=== PATIENT | female | born 1995 | race Caucasian/White ===

== ENCOUNTER 2019-10-06 12:56 | Emergency (ER) | payer BC ==
--- OUTSIDE RECORDS SUMMARY | 2019-10-06 13:18 | XMS REPORT | Continuity of Care Document ---
:1995 External Reference #:[id number] Author Name Jesús Galvan MD Address [address] [place] [address] Problems Description No Information Available Social History Type Date Description Comments Sex Unknown Tobacco Use Start: Unknown Never Smoked Cigarettes ETOH Use Occasionally consumes alcohol Tobacco Use Start: Unknown Patient has never smoked Recreational Drug Use Denies Drug Use Enjoy Exercising Enjoys exercising Allergies, Adverse Reactions, Alerts Description No Known Drug Allergies Medications Active Medications SIG Qnty Indications Ordering Provider Date Ferrous Gluconate 1 by mouth every 30tabs Zhane Vogel, 07/12/2017 day [facility] 324(38Fe) mg Tablets Enskyce 1 by mouth every 84tabs Sofi Song, 06/15/2017 0.15-30mg-mcg day [facility] Tablets Imitrex take one tablet 14tabs R51 Zhane Vogel, 06/15/2017 25mg Tablets by mouth at the [facility] onset of headache, may repeat dose in 2 hours if needed Medications Administered in Office Medication SIG Qnty Indications Ordering Provider Date Vitamin B-12 Injection-To [facility] 07/19/2019 1000mcg Injection TB,Intradermal (PPD, Mantoux) Unknown 05/28/2013 Injection Immunizations CPT Code Status Date Vaccine Lot # [id number] Given 07/12/2017 Menb - Serogroup B Meningococcal Vaccine(Trumenba) [id number] 27028 Given 12/07/2015 Menb - Serogroup B Meningococcal Vaccine(Trumenba) [id number] 85671 Given 10/08/2013 Menactra (meningococcal conjugate vaccine) 15358 Given 01/31/2012 HPV Vaccine, Gardasil 16057 Given 09/27/2011 HPV Vaccine, Gardasil 86806 Given 09/27/2011 Hepatitis A (Ped) 2 Dose Schedule 29175 Given 09/24/2010 HPV Vaccine, Gardasil 10534 Given 09/24/2010 Hepatitis A (Ped) 2 Dose Schedule 53823 Given 09/17/2009 Menactra (meningococcal conjugate vaccine) 49388 Given 09/16/2008 Varicella (Chicken Pox) Vaccine 99545 Given 09/16/2008 Tdap (Adacel) 97710 Given 10/15/2001 Inactivated Polio Vaccine, Injectable (Ipol) 51154 Given 10/15/2001 MMR (Measles,Mumps,Rubella) 67196 Given 10/15/2001 DTaP (Daptacel) 89669 Given 11/24/1998 Hib (Hemophilus Influenza B) (Acthib) 23976 Given 11/24/1998 DTaP (Daptacel) 33126 Given 08/04/1998 MMR (Measles,Mumps,Rubella) 84050 Given 08/04/1998 Inactivated Polio Vaccine, Injectable (Ipol) 25033 Given 08/04/1998 Varicella (Chicken Pox) Vaccine 10642 Given 02/09/1998 Comvax - Hep B Pediatric/Hib 36386 Given 02/09/1998 DTaP (Daptacel) 34653 Given 1997 Inactivated Polio Vaccine, Injectable (Ipol) 07428 Given 1997 DTaP (Daptacel) 97501 Given 1997 Hib (Hemophilus Influenza B) (Acthib) 81999 Given 1997 Comvax - Hep B Pediatric/Hib 65843 Given 1997 Inactivated Polio Vaccine, Injectable (Ipol) 79587 Given 1997 DTaP (Daptacel) 18365 Given 1997 Hep B Vaccine, Ped/Adol Dose 3 Dose (Engerix or Recombivax) 28129 Refused 07/15/2019 Influenza Virus Vaccine, Quadrivalent, 3 Yr > Quad , Preserv Free 86256 Refused 07/19/2018 Influenza Virus Vaccine, Quadrivalent, 3 Yr > Quad , Preserv Free 76100 Refused 07/12/2017 Influenza Virus Vaccine, Quadrivalent, 3 Yr > Quad , Preserv Free 78908 Refused 11/24/2015 Influenza Virus Vaccine, Quadrivalent, 3 Yr > Quad , Preserv Free Vital Signs Date Vital Result Comment 09/23/2019 8:59am Weight 122.00 lb Weight 55.339 kg BP Systolic 110 mmHg BP Diastolic 68 mmHg Heart Rate 80 /min Body Temperature 98.2 F Respiratory Rate 14 /min 07/15/2019 2:11pm Weight 119.00 lb Weight 53.978 kg BP Systolic 124 mmHg BP Diastolic 72 mmHg Body Temperature 98.0 F Respiratory Rate 16 /min Results Test Acquired Facility Test Result H/L Range Note Date Laboratory 07/19/2019 [facility] Intrinsic Factor Negative Negative 1 test finding [phone] Blocking AB Celiac Panel 07/19/2019 [facility] Tissue <1.2 U/mL 2 [phone] Transglutaminase IgA Ab Immunoglobulin A 317 mg/dL 61 - 356 Celiac Interpretation See Comment 3 CBC Auto 07/15/2019 [facility] White Blood 7.7 10^3/ uL Normal 3.5-10.8 Diff [phone] Count Red Blood Count 4.48 10^6/uL Normal 3.70-4.87 Hemoglobin 14.1 g/dL Normal 12.0-16.0 Hematocrit 40 % Normal 35-47 Mean Corpuscular Volume 90 fL Normal 80-97 Mean Corpuscular Hemoglobin 32 pg High 27-31 Mean Corpuscular HGB Conc 35 g/dL Normal 31-36 Red Cell Distribution Width 14 % Normal 10-15 Platelet Count 281 10^3/uL Normal 150-450 Mean Platelet Volume 8.8 fL Normal 7.4-10.4 Abs Neutrophils 4.6 10^3/uL Normal 1.5-7.7 Abs Lymphocytes 2.3 10^3/uL Normal 1.0-4.8 Abs Monocytes 0.6 10^3/uL Normal 0-0.8 Abs Eosinophils 0.2 10^3/uL Normal 0-0.6 Abs Basophils 0.0 10^3/uL Normal 0-0.2 Abs Nucleated RBC 0.0 10^3/uL Granulocyte % 59.1 % Lymphocyte % 30.4 % Monocyte % 7.7 % Eosinophil % 2.2 % Basophil % 0.6 % Nucleated Red Blood Cells % 0.1 Comp Metabolic 07/15/2019 [facility] Sodium 138 mmol/ L Normal 135-145 Panel [phone] Potassium 3.9 mmol/L Normal 3.5-5.0 Chloride 107 mmol/L Normal 101-111 Co2 Carbon Dioxide 24 mmol/L Normal 22-32 Anion Gap 7 mmol/L Normal 2-11 Glucose 104 mg/dL High 70-100 Blood Urea Nitrogen 11 mg/dL Normal 6-24 Creatinine 0.75 mg/dL Normal 0.51-0.95 BUN/Creatinine Ratio 14.7 Normal 8-20 Calcium 9.4 mg/dL Normal 8.6-10.3 Total Protein 7.1 g/dL Normal 6.4-8.9 Albumin 4.2 g/dL Normal 3.2-5.2 Globulin 2.9 g/dL Normal 2-4 Albumin/Globulin Ratio 1.4 Normal 1-3 Total Bilirubin 0.40 mg/dL Normal 0.2-1.0 Alkaline Phosphatase 44 U/L Normal 34-104 Alt 9 U/L Normal 7-52 Ast 14 U/L Normal 13-39 Egfr Non- 97.5 >60 Egfr 118.0 >60 4 Laboratory test 07/15/2019 [facility] C Reactive 5.99 mg/L Normal <8.01 5 finding [phone] Protein TSH (Thyroid Stim Horm) 0.71 mcIU/mL Normal 0.34-5.60 6 Vitamin B12 167 pg/mL Low 180-914 7 Intrinsic Factor Blocking AB Negative Negative 8 Celiac Panel 07/15/2019 [facility] Tissue Transglutaminase <1.2 U/mL 9 [phone] IgA Ab Immunoglobulin A 95 mg/dL 61 - 356 Celiac Interpretation See Comment 10 1 Positive in 50% of persons with pernicious anemia. Test Performed by: [facility] [address] Assistant To The Vice President: Jarocoh Wood M.D. Ph.D.; IA# [id number] 2 REFERENCE VALUE <4.0 (Negative) Test Performed by: [facility] [place] [address] Assistant To The Vice President: Jarocho Wood M.D. Ph.D.; CLIA# [id number] 3 Negative serology. Celiac disease unlikely. However, approximately 10% of patients with celiac disease are seronegative. Also, patients who are already adhering to a gluten-free diet may be seronegative. If celiac disease is highly clinically suspected, consider HLA-DQ typing. Test Performed by: [facility] [place] [address] Assistant To The Vice President: Jarocho Wood M.D. Ph.D.; CLIA# [id number] 4 Because ethnic data is not always readily available, this report includes an eGFR for both -Americans and non- Americans. The National Kidney Disease Education Program (NKDEP) does not endorse the use of the MDRD equation for patients that are not between the ages of 18 and 70, are , have extremes of body size, muscle mass, or nutritional status, or are non- or non-. According to the National Kidney Foundation, irrespective of diagnosis, the stage of the disease is based on the level of kidney function: Stage Description GFR(mL/min/1.73 m(2)) 1 Kidney damage with normal or decreased GFR 90 2 Kidney damage with mild decrease in GFR 60-89 3 Moderate decrease in GFR 30-59 4 Severe decrease in GFR 15-29 5 Kidney failure <15 (or dialysis) 5 [id number] 6 [id number] 7 Normal Range 180 to 914 Indeterminate Range 145 to 180 Deficient Range <145 8 Positive in 50% of persons with pernicious anemia. Test Performed by: [facility] [place] [address] Assistant To The Vice President: Jarocho Wood M.D. Ph.D.; CLIA# [id number] 9 REFERENCE VALUE <4.0 (Negative) Test Performed by: [place] [address] Assistant To The Vice President: Jarocho Wood M.D. Ph.D.; CLIA# [id number] 10 Negative serology. Celiac disease unlikely. However, approximately 10% of patients with celiac disease are seronegative. Also, patients who are already adhering to a gluten-free diet may be seronegative. If celiac disease is highly clinically suspected, consider HLA-DQ typing. Test Performed by: [facility] [address] [place] [address] Assistant To The Vice President: Jarocho Wood M.D. Ph.D.; CLIA# [id number] Procedures Date Code Description Status 07/19/2019 74462 Therapeutic,Prophylactic,Or Diagnostic Inj,SC/Im Specify Completed Drug Medical Devices Description No Information Available Encounters Type Date Location Provider Dx Diagnosis Office Visit 07/15/2019 Main Office Jesús Galvan, R11.2 Nausea with vomiting, 2:15p unspecified Assessments Date Code Description Provider 09/23/2019 B27.90 Infectious mononucleosis, unspecified Jesús Galvan MD without complication 07/19/2019 E53.8 Deficiency of other specified B group Jesús Galvna MD vitamins 07/19/2019 E53.8 Deficiency of other specified B group [facility] vitamins 07/15/2019 R11.2 Nausea with vomiting, unspecified Jesús Galvan MD Plan of Treatment 09/23/2019 - Jesús Galvan MDB27.90 Infectious mononucleosis, unspecified without complicationComments:Brief fever and severe sore throat, with some tender LN left over. Severe fatigue and worsening of her mild autonomic symptoms (orthostasis, migraine, headaches, tmj).The symptoms are already resolving and the severe phase was quite brief. I think this represents a reinfection or reactivation of mono(which she states she has had twice before). Recommended symptomatic treatment to include excellent hydration and lots of rest. Functional Status Description No Information Available Mental Status Description No Information Available Referrals Description No Information Available
--- NOTE | 2019-10-06 14:02 | ED ---
Back Pain - HPI Summary HPI Summary: This patient is a 24 year old F presenting to ED with a chief complaint of lower left back pain radiating down the left leg since one week ago. Patient describes the pain as a constant dull ache but turns into shooting pain down the left leg if she moves a certain way. Patient denies fever, urinary incontinence/symptoms or fecal impaction/bowel symptoms. Patient denies lifting weights. Patients last menstrual cycle was two weeks ago, and she denies a risk of being . Patient is recovering from mono and has been lying in bed for the past two weeks. The patient rates the pain 5/10 in severity. Symptoms aggravated by nothing. Symptoms alleviated by nothing. - History of Current Complaint Chief Complaint: EDBackInjuryPain Stated Complaint: LOWER BACK PAIN PER PT Time Seen by Provider: 10/06/19 13:56 Hx Obtained From: Patient Onset/Duration: Gradual Onset, Lasting Weeks - 1 week, Still Present Onset/Duration: Started Weeks Ago - 1 week, Still Present Timing: Constant, Lasting Weeks - 1 week Back Pain Location: Is Discrete @ - Lower left back, Radiates To - Left leg Severity Initially: Moderate Severity Currently: Moderate Pain Intensity: 5 Pain Scale Used: 0-10 Numeric Character: Dull Aggravating Symptom(s): Nothing Alleviating Symptom(s): Nothing Associated Signs And Symptoms: Negative: Fever, Bladder Incontinence, Bowel Incontinence - Allergies/Home Medications Allergies/Adverse Reactions: Allergies Allergy/AdvReac Type Severity Reaction Status Date / Time No Known Allergies Allergy Verified 10/06/19 13:03 Home Medications: Home Medications Ibuprofen TAB* [Motrin TAB* 600 MG] 600 mg PO Q8H PRN #30 tab 10/06/19 [Rx] Methocarbamol TAB* [Robaxin 500 MG TAB*] 500 mg PO TID PRN #12 tab 10/06/19 [Rx] methylPREDNISolone [Medrol Dosepak 4 MG*] 0 mg PO .SEE AIYANA INSTRUCTION #1 aiyana [Rx] PMH/Surg Hx/FS Hx/Imm Hx Endocrine/Hematology History: Denies: Hx Diabetes Cardiovascular History: Denies: Hx Hypercholesterolemia, Hx Hypertension Respiratory History: Denies: Hx Asthma - Surgical History Surgery Procedure, Year, and Place: Denies Infectious Disease History: No Infectious Disease History: Denies: Traveled Outside the [place] in Last 30 Days - Family History Known Family History: Positive: Cardiac Disease - [place], Hypertension, Diabetes - Social History Alcohol Use: None Hx Substance Use: No Substance Use Type: Reports: None Hx Tobacco Use: No Smoking Status (MU): Never Smoked Tobacco Review of Systems Negative: Fever Negative: incontinence Musculoskeletal: Other - Lower left back pain radiating down the left leg All Other Systems Reviewed And Are Negative: Yes Physical Exam - Summary Physical Exam Summary: VITAL SIGNS: Reviewed. GENERAL: Patient is a well-developed and nourished female who is lying comfortable in the stretcher. Patient is not in any acute respiratory distress. HEAD AND FACE: No signs of trauma. No ecchymosis, hematomas or skull depressions. No sinus tenderness. EYES: PERRLA, EOMI x 2, No injected conjunctiva, no nystagmus. EARS: Hearing grossly intact. Ear canals and tympanic membranes are within normal limits. MOUTH: Oropharynx within normal limits. NECK: Supple, trachea is midline, no adenopathy, no JVD, no carotid bruit, no c- spine tenderness, neck with full ROM. CHEST: Symmetric, no tenderness at palpation. LUNGS: Clear to auscultation bilaterally. No wheezing or crackles. CVS: Regular rate and rhythm, S1 and S2 present, no murmurs or gallops appreciated. ABDOMEN: Soft, non-tender. No signs of distention. No rebound, no guarding, and no masses palpated. Bowel sounds are normal. EXTREMITIES: Tenderness in the left gluteus. Straight leg is positive at 60 degrees. NEURO: Alert and oriented x 3. No acute neurological deficits. Speech is normal and follows commands. SKIN: Dry and warm. Triage Information Reviewed: Yes Vital Signs On Initial Exam: Initial Vitals Temp Pulse Resp BP Pulse Ox 97.8 F 106 19 137/94 98 10/06/19 12:57 10/06/19 12:57 10/06/19 12:57 10/06/19 12:57 10/06/19 12:57 Vital Signs Reviewed: Yes Procedures - Sedation Patient Received Moderate/Deep Sedation with Procedure: No Diagnostics - Vital Signs Vital Signs Temp Pulse Resp BP Pulse Ox 10/06/19 12:57 97.8 F 106 19 137/94 98 - Laboratory Lab Statement: Any lab studies that have been ordered have been reviewed, and results considered in the medical decision making process. - Radiology L-spine XR Radiology Interpretation Completed By: Radiologist Summary of Radiographic Findings: UNREMARKABLE RADIOGRAPH OF THE LUMBAR SPINE. Dr. Naranjo has reviewed this radiology report. Re-Evaluation - Re-Evaluation First Eval Re-Evaluation Time: 03:20 Comment: With treatment, patient reports feeling better. Discussed results with patient. Patient will be discharged home with dx of sciatica. Patient understands and agrees with this plan. Back Pain Course/Dx - Course Assessment/Plan: This patient is a 24 year old F presenting to ED with a chief complaint of lower left back pain radiating down the left leg since one week ago. Patient describes the pain as a constant dull ache but turns into shooting pain down the left leg if she moves a certain way. Patient denies fever, urinary incontinence/symptoms or fecal impaction/bowel symptoms. Patient denies lifting weights. Patients last menstrual cycle was two weeks ago, and she denies a risk of being . Patient is recovering from mono and has been lying in bed for the past two weeks. The patient rates the pain 5/10 in severity. Symptoms aggravated by nothing. Symptoms alleviated by nothing. lumbar spine x-ray impression: No acute pathology. In the ED course the patient was given Decadron, Toradol and Robaxin. After she was given his medication she reports improvement of pain. At this point I discussed all the findings and test results with the patient. Patient was instructed to return to the emergency room immediately if any of the symptoms return or worsen. Patient understands and agrees. Patient is able to ambulate freely w/o aid or limp in the ER. Plan of care was discussed with the patient and patient understands and agrees. All questions were answered at patient satisfaction. There were no further complaints or concerns. Neurological exam before discharge: Patient is alert and oriented x 3. No acute neurological deficits. Patient is hemodynamically stable. Patient is to follow up with primary care physician in the next 2 3 days. He understands and agrees. - Diagnoses Provider Diagnoses: Sciatica Discharge ED - Sign-Out/Discharge Documenting (check all that apply): Patient Departure - Discharge - Discharge Plan Condition: Stable Disposition: HOME Prescriptions: Ibuprofen TAB* [Motrin TAB* 600 MG] 600 mg PO Q8H PRN #30 tab PRN Reason: Pain - Moderate Methocarbamol TAB* [Robaxin 500 MG TAB*] 500 mg PO TID PRN #12 tab PRN Reason: Spasms - Back methylPREDNISolone [Medrol Dosepak 4 MG*] 0 mg PO .SEE AIYANA INSTRUCTION #1 aiyana Patient Education Materials: Sciatica (ED) Referrals: Fabián Heath MD [Primary Care Provider] - 3 Days Additional Instructions: FOLLOW UP WITH YOUR PRIMARY CARE PROVIDER WITHIN ONE WEEK FOR YOUR SYMPTOMS NOTED TODAY. RETURN TO THE ED FOR ANY WORSENING OR NEW SYMPTOMS. - Billing Disposition and Condition Condition: STABLE Disposition: Home - Attestation Statements Document Initiated by Scribe: Yes Documenting Scribe: Juan Jasso Provider For Whom Ivan is Documenting (Include Credential): Garret Naranjo MD Scribe Attestation: I, Juan Jasso, scribed for Garret Naranjo MD on 10/07/19 at 0717. Scribe Documentation Reviewed: Yes Provider Attestation: The documentation as recorded by the [email or web address] stoner accurately reflects the service I personally performed and the decisions made by me, Garret Naranjo MD Status of Scribe Document: Viewed
[2019-10-06] MEDS ORDERED: Ketorolac *IM* INJ* 60 MG/2 ML VIAL IM ONE (14:13)
[2019-10-06] MEDS ORDERED: Methocarbamol TAB* 500 MG PO ONE (14:13)
[2019-10-06] MEDS ORDERED: Dexamethasone IV* 4 MG/ML 1 ML (4 MG) IM ONE (14:13)
[2019-10-06 15:48] VITALS: BP 127/81
== END 2019-10-06 15:48 | disposition home or self-care (01) ==
LOC: ED 12:56
DX: M54.30 Sciatica, unspecified side (principal); M54.9 Dorsalgia, unspecified
CPT/HCPCS: 72100; 96372; 99282; A9270-GY; J1100; J1885